=== PATIENT | male | born 1965 | race Hispanic/Latino ===

== ENCOUNTER 2017-09-12 17:51 | Inpatient (IN) | payer BC ==
[~2017-09-12] VITALS: Ht 172.7 cm; Wt 82.6 kg
[2017-09-12] MEDS ORDERED: ASPIRIN 325 MG TABLET ONE (18:18)
[2017-09-12 18:22] LABS: BASOPHILS % (AUTO) 0.5 % (0.0-5.0); EOSINOPHILS % (AUTO) 0.4 % (0.0-8.0); HEMATOCRIT 49.3 % (42-54); LYMPHOCYTES % (AUTO) 17.2 % (21.0-51.0); MEAN CORPUSCULAR HEMOGLOBIN 32.9 pg (27.0-33.0); MEAN CORPUSCULAR HGB CONC 34.9 g/dL (32.0-36.0); MEAN CORPUSCULAR VOLUME 94.3 fL (79-99); MONOCYTES % (AUTO) 3.9 % (3.0-13.0); NUCLEATED RED BLOOD CELLS 0.1 % (0.0-0.19); PLATELET COUNT (AUTO) 117 K/uL (130-400); RED BLOOD CELL COUNT(AUTO) 5.23 MIL/uL (4.50-6.20); RED CELL DISTRIBUTION WIDTH 13.6 % (11.0-15.5); WHITE BLOOD COUNT (AUTO) 8.2 K/uL (4.8-10.8)
[2017-09-12 18:34] LABS: INR 0.96 (0.85-1.15); PARTIAL THROMBOPLASTIN TIME 26.5 SEC (26.3-35.5); PROTHROMBIN TIME 10.1 SEC (9.6-11.6)
[2017-09-12 18:35] LABS: CREATININE 1.3 mg/dL (0.5-1.5); POTASSIUM 4.1 mmol/L (3.5-5.1)
[2017-09-12 18:49] LABS: ALBUMIN 4.2 g/dL (3.5-5.0); BILIRUBIN,TOTAL 0.5 mg/dL (0.2-1.0); TOTAL PROTEIN, SERUM 7.2 g/dL (6.0-8.3)
[2017-09-12] MEDS ORDERED: ONDANSETRON HCL 4 MG/2 ML VIAL ONE (19:31)
[2017-09-12] MEDS ORDERED: NITROGLYCERIN 1GM/1 INCH PACKET TD ONE (19:31)
[2017-09-12] MEDS ORDERED: MORPHINE SULFATE 2 MG/ML 1ML SYG ONE (19:32)
[2017-09-12] MEDS ORDERED: SODIUM CHLORIDE 0.9% 500ML 500 ML IV SCH (20:13)
[2017-09-12] MEDS ORDERED: ENOXAPARIN SODIUM 40 MG/0.4 ML SYRINGE SQ ONE (20:15)
[2017-09-12] MEDS: ENOXAPARIN SODIUM 40 MG/0.4 ML SYRINGE SQ SCH (20:19)
[2017-09-12] MEDS ORDERED: LIDOCAINE HCL-MPF 2% 5ML VIAL ONE (20:40)
[2017-09-12] MEDS ORDERED: HEPARIN SODIUM 1000UNIT/ML 10ML VIAL ONE (20:40)
[2017-09-12] MEDS ORDERED: NITROGLYCERIN 5 MG/ML 10 ML VIAL IV ONE (20:41)
[2017-09-12] MEDS ORDERED: IOHEXOL 350 MG/ML 100ML INFUS..BTL IV ONE (20:41)
[2017-09-12] MEDS ORDERED: IOHEXOL-350 50ML VIAL IV ONE (20:41)
[2017-09-12] MEDS ORDERED: MIDAZOLAM HCL 1 MG/ML 2ML VIAL ONE ×2 (20:41→21:05)
[2017-09-12] MEDS ORDERED: ATROPINE SULFATE 0.1 MG/ML 10 ML SYG IVP ONE (21:31)
[2017-09-12] MEDS ORDERED: CLOPIDOGREL BISULFATE 300 MG TAB ONE (21:34)
[2017-09-12] MEDS ORDERED: TEMAZEPAM 30 MG CAP PO PRN (22:00)
[2017-09-12] MEDS ORDERED: MORPHINE SULFATE 5 MG/ML VIAL IVP SCH (22:00)
[2017-09-12] MEDS ORDERED: ACETAMINOPHEN-CODEINE 300/30MG TAB PO PRN (22:00)
[2017-09-12] MEDS ORDERED: ONDANSETRON HCL MDV 20ML 2 MG/ML VIAL IVP SCH (22:00)
[2017-09-12] MEDS ORDERED: ONDANSETRON HCL MDV 20ML 2 MG/ML VIAL IVP PRN (22:00)
[2017-09-12 22:12] VITALS: BP 147/101
[2017-09-12 22:50] VITALS: BP 135/90
[2017-09-12 23:13] VITALS: BP 122/82
[2017-09-12 23:15] VITALS: BP 139/95
[2017-09-12] MEDS ORDERED: ALPR2TAB7 PO (23:31)
[2017-09-12 23:44] VITALS: BP 138/84
[2017-09-13] VITALS (8 sets, daily range): BP systolic 94–120; BP diastolic 57–87
[2017-09-13 02:33] LABS: HEMATOCRIT 47.1 % (42-54); MEAN CORPUSCULAR HEMOGLOBIN 32.5 pg (27.0-33.0); MEAN CORPUSCULAR HGB CONC 34.4 g/dL (32.0-36.0); MEAN CORPUSCULAR VOLUME 94.6 fL (79-99); PLATELET COUNT (AUTO) 103 K/uL (130-400); RED BLOOD CELL COUNT(AUTO) 4.98 MIL/uL (4.50-6.20); RED CELL DISTRIBUTION WIDTH 13.1 % (11.0-15.5); WHITE BLOOD COUNT (AUTO) 6.7 K/uL (4.8-10.8)
[2017-09-13] MEDS: ACETAMINOPHEN-CODEINE 300/30MG TAB PO PRN ×2 (02:54→08:48)
[2017-09-13 03:29] LABS: POTASSIUM 3.6 mmol/L (3.5-5.1)
[2017-09-13 04:24] LABS: TROPONIN I 191.26 ng/mL (0.00-0.06)
[2017-09-13] MEDS: NICOTINE 21 MG/ 24 HR PATCH TD SCH (08:47)
[2017-09-13] MEDS: ATORVASTATIN CALCIUM 40 MG TABLET PO SCH (08:47)
[2017-09-13] MEDS: CLOPIDOGREL BISULFATE 75 MG TAB PO SCH (08:47)
[2017-09-13] MEDS: PANTOPRAZOLE SODIUM 40 MG TABLET.DR PO SCH (08:47)
[2017-09-13] MEDS: ASPIRIN 81MG TAB.CHEW PO SCH (08:47)
[2017-09-13] MEDS: ENOXAPARIN SODIUM 40 MG/0.4 ML SYRINGE SQ SCH (08:53)
[2017-09-13] MEDS ORDERED: ALPRAZOLAM 1 MG TAB PO SCH (09:00)
[2017-09-13] MEDS ORDERED: METOPROLOL TARTRATE 25 MG TAB PO SCH (09:00)
[2017-09-13] MEDS ORDERED: FUROSEMIDE 10 MG/ML 4ML VIAL IVP SCH (09:00)
[2017-09-13] MEDS ORDERED: ASPIRIN 325 MG TABLET PO SCH (09:00)
[2017-09-13] MEDS: LISINOPRIL 2.5 MG TABLET PO SCH (10:56)
[2017-09-13] MEDS: ACETAMINOPHEN 325 MG TAB PO PRN (17:21)
[2017-09-13] MEDS: ALPRAZOLAM 1 MG TAB PO PRN (19:51)
[2017-09-13] MEDS: CARVEDILOL 6.25 MG TABLET PO SCH (20:53)
[2017-09-14] VITALS (7 sets, daily range): BP systolic 85–124; BP diastolic 55–73
[2017-09-14 04:17] LABS: POTASSIUM 3.4 mmol/L (3.5-5.1)
[2017-09-14] MEDS: ENOXAPARIN SODIUM 40 MG/0.4 ML SYRINGE SQ SCH (07:51)
[2017-09-14] MEDS: CARVEDILOL 6.25 MG TABLET PO SCH ×2 (07:52→21:01)
[2017-09-14] MEDS: LISINOPRIL 2.5 MG TABLET PO SCH (07:52)
[2017-09-14] MEDS: ALPRAZOLAM 1 MG TAB PO PRN ×2 (07:52→17:23)
[2017-09-14] MEDS: CLOPIDOGREL BISULFATE 75 MG TAB PO SCH (07:52)
[2017-09-14] MEDS: ATORVASTATIN CALCIUM 40 MG TABLET PO SCH (07:52)
[2017-09-14] MEDS: ASPIRIN 81MG TAB.CHEW PO SCH (07:53)
[2017-09-14] MEDS: PANTOPRAZOLE SODIUM 40 MG TABLET.DR PO SCH (08:01)
[2017-09-14] MEDS: NICOTINE 21 MG/ 24 HR PATCH TD SCH (08:43)
[2017-09-14] MEDS ORDERED: FUROSEMIDE 20 MG TABLET PO SCH (09:00)
[2017-09-14] MEDS ORDERED: SPIR25TA PO (12:39)
[2017-09-14] MEDS ORDERED: ASPI-1005 PO (12:39)
[2017-09-14] MEDS ORDERED: METO-408 PO (12:39)
[2017-09-14] MEDS ORDERED: LISI2.5T2 PO (12:39)
[2017-09-14] MEDS ORDERED: ATOR40TA69 PO (12:39)
[2017-09-14] MEDS ORDERED: NICO-705 TD (12:39)
[2017-09-14] MEDS ORDERED: CLOP75TA14 PO (12:39)
[2017-09-14] MEDS ORDERED: POTASSIUM CHLORIDE 10% ELIXIR 20 MEQ/15 ML UDCUP PO PRN (12:45)
[2017-09-14] MEDS ORDERED: LIDOCAINE HCL-MPF 1% 2ML VIAL IVP PRN (12:45)
[2017-09-14] MEDS ORDERED: POTASSIUM CHLORIDE 20MEQ/100ML 100 ML IV PRN (12:45)
[2017-09-14] MEDS: POTASSIUM CHLORIDE 20 MEQ ERTAB PO PRN ×2 (15:39→17:21)
[2017-09-14] MEDS: ACETAMINOPHEN 325 MG TAB PO PRN (17:20)
[2017-09-15] VITALS: BP 84/51
[2017-09-15 03:27] VITALS: BP 105/74
[2017-09-15 07:47] VITALS: BP 137/88
[2017-09-15] MEDS ORDERED: SPIRONOLACTONE 25 MG TAB PO SCH (09:00)
[2017-09-15] MEDS: PANTOPRAZOLE SODIUM 40 MG TABLET.DR PO SCH (09:25)
[2017-09-15] MEDS: NICOTINE 21 MG/ 24 HR PATCH TD SCH (09:25)
[2017-09-15] MEDS: CLOPIDOGREL BISULFATE 75 MG TAB PO SCH (09:25)
[2017-09-15] MEDS: ATORVASTATIN CALCIUM 40 MG TABLET PO SCH (09:25)
[2017-09-15] MEDS: ASPIRIN 81MG TAB.CHEW PO SCH (09:25)
[2017-09-15] MEDS: LISINOPRIL 2.5 MG TABLET PO SCH (09:25)
[2017-09-15] MEDS: CARVEDILOL 6.25 MG TABLET PO SCH (09:27)
[2017-09-15] MEDS: ALPRAZOLAM 1 MG TAB PO PRN (09:56)
[2017-09-15 11:26] VITALS: BP 121/70
[2017-09-15] MEDS ORDERED: CLOP75TA14 PO (13:56)
== END 2017-09-15 14:31 | disposition home or self-care (01) | DRG 248 ==
LOC: EDH 17:51 → EDHIP 20:00 → 2DH 21:42
PROVIDERS: ADMIT Family Medicine; ATTEND Family Medicine
PROC: 4A023N7 Measurement of Cardiac Sampling and Pressure, Left Heart, Percutaneous Approach (ICD-10-PCS; principal; 2017-09-12)
PROC: 02703DZ Dilation of Coronary Artery, One Artery with Intraluminal Device, Percutaneous Approach (ICD-10-PCS; 2017-09-12)
PROC: B2111ZZ Fluoroscopy of Multiple Coronary Arteries using Low Osmolar Contrast (ICD-10-PCS; 2017-09-12)
DX: I21.4 Non-ST elevation (NSTEMI) myocardial infarction (principal); I50.23 Acute on chronic systolic (congestive) heart failure; F13.20 Sedative, hypnotic or anxiolytic dependence, uncomplicated; F17.210 Nicotine dependence, cigarettes, uncomplicated; E78.2 Mixed hyperlipidemia; F41.9 Anxiety disorder, unspecified; I25.10 Atherosclerotic heart disease of native coronary artery without angina pectoris; I25.5 Ischemic cardiomyopathy; I25.2 Old myocardial infarction; Z79.82 Long term (current) use of aspirin; Z79.899 Other long term (current) drug therapy; Z95.5 Presence of coronary angioplasty implant and graft; Z83.3 Family history of diabetes mellitus; Z82.49 Family history of ischemic heart disease and other diseases of the circulatory system
CPT/HCPCS: 36415; 71045; 80048; 80053; 80061; 82550; 82553; 82948; 83874; 83880; 84484; 85025; 85027; 85610; 85730; 92941; 92943; 93005; 93306; 93458; 99156; 99157; C1769; C1887; C1894; J0461; J1644; J1650; J1940; J2250; J2270; J2405; J3490; Q9967

== ENCOUNTER 2017-12-15 10:32 | Emergency (ER) | payer BC ==
[~2017-12-15 10:32] MED LIST: ALPR2TAB7 PO; ASPI-1005 PO; ATOR40TA69 PO; CLOP75TA14 PO; LISI2.5T2 PO; METO-408 PO; NICO-705 TD; SPIR25TA PO
== END 2017-12-15 11:24 | disposition home or self-care (01) ==
LOC: EDH 10:32
DX: K64.9 Unspecified hemorrhoids (principal); Z72.0 Tobacco use
CPT/HCPCS: 99281

== ENCOUNTER 2017-12-19 09:16 | Emergency (ER) | payer BC ==
[2017-12-19] MEDS ORDERED: KETOROLAC TROMETHAMINE 60 MG/2 ML VIAL ONE (09:44)
== END 2017-12-19 10:24 | disposition home or self-care (01) ==
LOC: EDH 09:16
DX: S13.8XXA Sprain of joints and ligaments of other parts of neck, initial encounter (principal); F41.9 Anxiety disorder, unspecified; Z86.14 Personal history of Methicillin resistant Staphylococcus aureus infection; Z72.0 Tobacco use; W18.39XA Other fall on same level, initial encounter; Y93.89 Activity, other specified; Y92.89 Other specified places as the place of occurrence of the external cause; Y99.8 Other external cause status
CPT/HCPCS: 72040; 96372; 99284; J1885

== ENCOUNTER 2018-12-24 09:21 | Emergency (ER) | payer BC, OTHER ==
[2018-12-24 10:03] LABS: BASOPHILS % (AUTO) 0.9 % (0.0-5.0); EOSINOPHILS % (AUTO) 0.5 % (0.0-8.0); MEAN CORPUSCULAR HEMOGLOBIN 33.6 pg (27.0-33.0); NEUTROPHILS % (AUTO) 72.6 % (40.0-77.0); NUCLEATED RED BLOOD CELLS 0.1 % (0.0-0.19); PLATELET COUNT (AUTO) 140 K/uL (130-400); RED CELL DISTRIBUTION WIDTH 13.5 % (11.0-15.5); WHITE BLOOD COUNT (AUTO) 6.7 K/uL (4.8-10.8)
[2018-12-24] MEDS ORDERED: ONDANSETRON HCL 4 MG/2 ML VIAL ONE (10:08)
[2018-12-24] MEDS ORDERED: SODIUM CHLORIDE 0.9% 1000ML 1,000 ML IV ONE (10:09)
[2018-12-24 10:15] LABS: APPEARANCE,URINE Clear (CLEAR); BILIRUBIN,URINE Negative (NEGATIVE); COLOR,URINE Yellow (YELLOW); GLUCOSE, URINE (UA) Negative (NEGATIVE); KETONES,URINE Negative (NEGATIVE); LEUKOCYTE ESTERASE ,URINE Negative (NEGATIVE); NITRATE,URINE Negative (NEGATIVE); OCCULT BLOOD,URINE Negative (NEGATIVE); PROTEIN,URINE Negative (NEGATIVE)
[2018-12-24 10:25] LABS: CREATININE 1.1 mg/dL (0.5-1.5); POTASSIUM 3.6 mmol/L (3.5-5.1)
[2018-12-24 10:31] LABS: ALBUMIN 3.9 g/dL (3.5-5.0); BILIRUBIN,TOTAL 1.3 mg/dL (0.2-1.0); TOTAL PROTEIN, SERUM 7.3 g/dL (6.0-8.3)
== END 2018-12-24 15:09 | disposition home or self-care (01) ==
LOC: EDH 09:21
DX: K76.0 Fatty (change of) liver, not elsewhere classified (principal); R11.2 Nausea with vomiting, unspecified; F41.9 Anxiety disorder, unspecified; Z87.891 Personal history of nicotine dependence
CPT/HCPCS: 36415; 71045; 76705; 80053; 81003; 82150; 82550; 83690; 84484; 85025; 93005; 96361; 96374; 99285; G0480; J2405; J7030

== ENCOUNTER 2019-01-15 07:38 | Emergency (ER) | payer SELFPAY ==
[2019-01-15 08:32] LABS: APPEARANCE,URINE Clear (CLEAR); BILIRUBIN,URINE Negative (NEGATIVE); COLOR,URINE Dark Yellow (YELLOW); GLUCOSE, URINE (UA) Negative (NEGATIVE); KETONES,URINE Negative (NEGATIVE); LEUKOCYTE ESTERASE ,URINE Negative (NEGATIVE); NITRATE,URINE Negative (NEGATIVE); OCCULT BLOOD,URINE Negative (NEGATIVE); PROTEIN,URINE Trace mg/dL (NEGATIVE)
[2019-01-15 08:32] LABS: CREATININE 1.3 mg/dL (0.5-1.5); POTASSIUM 3.1 mmol/L (3.5-5.1)
[2019-01-15 08:34] LABS: INR 1.01 (0.85-1.15); PARTIAL THROMBOPLASTIN TIME 28.1 SEC (26.3-35.5); PROTHROMBIN TIME 10.6 SEC (9.6-11.6)
[2019-01-15 08:43] LABS: BASOPHILS % (AUTO) 0.6 % (0.0-5.0); HEMATOCRIT 43.4 % (42-54); MEAN CORPUSCULAR HEMOGLOBIN 33.6 pg (27.0-33.0); MEAN CORPUSCULAR HGB CONC 34.9 g/dL (32.0-36.0); MEAN CORPUSCULAR VOLUME 96.2 fL (79-99); MONOCYTES % (AUTO) 9.7 % (3.0-13.0); NEUTROPHILS % (AUTO) 73.7 % (40.0-77.0); NUCLEATED RED BLOOD CELLS 0.1 % (0.0-0.19); PLATELET COUNT (AUTO) 113 K/uL (130-400); RED BLOOD CELL COUNT(AUTO) 4.51 MIL/uL (4.50-6.20); RED CELL DISTRIBUTION WIDTH 13.3 % (11.0-15.5); WHITE BLOOD COUNT (AUTO) 6.3 K/uL (4.8-10.8)
[2019-01-15] MEDS ORDERED: SODIUM CHLORIDE 0.9% 1000ML 1,000 ML IV ONE (08:51)
[2019-01-15] MEDS ORDERED: LOPERAMIDE HCL 2 MG CAP PO ONE ×2 (08:52→11:57)
[2019-01-15 09:02] LABS: BACTERIA,URINE Few /HPF (None Seen); RBC,URINE None Seen /HPF (0-1); SQUAMOUS EPITHELIAL CELL,UR Few /HPF (0-2); WBC,URINE None Seen /HPF (0-1)
[2019-01-15] MEDS ORDERED: ONDANSETRON HCL 4 MG/2 ML VIAL ONE (09:53)
[2019-01-15] MEDS ORDERED: POTASSIUM CHLORIDE 10% ELIXIR 20 MEQ/15 ML UDCUP ONE (11:27)
[2019-01-15] MEDS ORDERED: SODIUM CHLORIDE 0.9% 500ML 500 ML IV ONE (11:28)
== END 2019-01-15 12:22 | disposition home or self-care (01) ==
LOC: EDH 07:38
DX: A09 Infectious gastroenteritis and colitis, unspecified (principal); E86.0 Dehydration; E87.6 Hypokalemia; K62.5 Hemorrhage of anus and rectum; F41.9 Anxiety disorder, unspecified; Z72.0 Tobacco use
CPT/HCPCS: 36415; 80048; 81001; 82270; 83605; 83690; 83880; 85025; 85610; 85730; 86850; 86900; 86901; 87040 ×2; 87046; 87804 ×2; 93005; 99285; J2405; J7030; J7040

== ENCOUNTER 2019-06-02 09:57 | Emergency (ER) | payer SELFPAY | END 2019-06-02 10:25 | disposition home or self-care (01) | LOC: EDH 09:57 | DX: S40.021A Contusion of right upper arm, initial encounter (principal); Z72.0 Tobacco use; F41.9 Anxiety disorder, unspecified; X58.XXXA Exposure to other specified factors, initial encounter; Y93.89 Activity, other specified; Y92.89 Other specified places as the place of occurrence of the external cause; Y99.8 Other external cause status | CPT/HCPCS: 99281 ==

== ENCOUNTER 2019-06-19 11:54 | Emergency (ER) | payer SELFPAY | END 2019-06-19 12:28 | disposition home or self-care (01) | LOC: EDH 11:54 | DX: B35.4 Tinea corporis (principal); F41.9 Anxiety disorder, unspecified; Z72.0 Tobacco use; Z95.1 Presence of aortocoronary bypass graft; Z98.890 Other specified postprocedural states | CPT/HCPCS: 99281 ==

== ENCOUNTER 2019-07-26 08:45 | Emergency (ER) | payer SELFPAY ==
[2019-07-26 09:42] LABS: BASOPHILS % (AUTO) 0.6 % (0.0-5.0); EOSINOPHILS % (AUTO) 0.9 % (0.0-8.0); HEMATOCRIT 45.4 % (42-54); LYMPHOCYTES % (AUTO) 19.1 % (21.0-51.0); MEAN CORPUSCULAR HEMOGLOBIN 32.8 pg (27.0-33.0); MEAN CORPUSCULAR HGB CONC 34.6 g/dL (32.0-36.0); MEAN CORPUSCULAR VOLUME 94.8 fL (79-99); MONOCYTES % (AUTO) 6.4 % (3.0-13.0); NEUTROPHILS % (AUTO) 72.8 % (40.0-77.0); PLATELET COUNT (AUTO) 113 K/uL (130-400); RED BLOOD CELL COUNT(AUTO) 4.79 MIL/uL (4.50-6.20); RED CELL DISTRIBUTION WIDTH 11.9 % (11.0-15.5); WHITE BLOOD COUNT (AUTO) 5.3 K/uL (4.8-10.8)
[2019-07-26] MEDS ORDERED: KETOROLAC TROMETHAMINE 30MG/ML ONE (09:49)
[2019-07-26 09:52] LABS: CREATININE 1.2 mg/dL (0.5-1.5); POTASSIUM 3.7 mmol/L (3.5-5.1)
[2019-07-26 09:58] LABS: ALBUMIN 3.6 g/dL (3.5-5.0); BILIRUBIN,DIRECT 0.4 mg/dL (0.0-0.3); BILIRUBIN,TOTAL 1.7 mg/dL (0.2-1.0); TOTAL PROTEIN, SERUM 6.7 g/dL (6.0-8.3)
[2019-07-26] MEDS ORDERED: ONDANSETRON HCL 4 MG/2 ML VIAL ONE (10:53)
== END 2019-07-26 11:38 | disposition home or self-care (01) ==
LOC: EDH 08:45
DX: S29.011A Strain of muscle and tendon of front wall of thorax, initial encounter (principal); R07.89 Other chest pain; F41.9 Anxiety disorder, unspecified; Z72.0 Tobacco use; X58.XXXA Exposure to other specified factors, initial encounter; Y93.89 Activity, other specified; Y92.89 Other specified places as the place of occurrence of the external cause; Y99.8 Other external cause status
CPT/HCPCS: 36415; 71045; 80048; 80076; 82550; 83690; 84484; 85025; 93005; 96374; 96375; 99285; J1885; J2405

== ENCOUNTER 2022-12-14 07:33 | Emergency (ER) | payer BC, MEDICARE ==
[~2022-12-14] VITALS: Ht 172.7 cm; Wt 63.5 kg
[~2022-12-14 07:33] MED LIST changes: -ASPI-1005 PO; +ASPI-1443 PO; -ATOR40TA69 PO; +ATOR40TA71 PO; +BUSP15TA3 PO; -CLOP75TA14 PO; -LISI2.5T2 PO; +LISI20TA24 PO; -METO-408 PO; -NICO-705 TD; +ONDA8TAB12 PO; +PANT20TA18 PO; -SPIR25TA PO
[2022-12-14 07:43] VITALS: BP 174/113; PULSE 120; RESP 18; O2SAT 99
[2022-12-14 08:17] LABS: BASOPHILS # (AUTO) 0.03 K/uL (0.00-0.20); BASOPHILS % (AUTO) 0.6 % (0.0-5.0); EOSINOPHILS # (AUTO) 0.02 K/uL (0.00-0.70); EOSINOPHILS % (AUTO) 0.4 % (0.0-8.0); HEMATOCRIT 49.5 % (42-54); IMMATURE GRANULOCYTE ABSOLUTE 0.01 K/uL (0-1); LYMPHOCYTES # (AUTO) 0.9 K/uL (1.0-4.8); MEAN CORPUSCULAR HEMOGLOBIN 33.6 pg (27.0-33.0); MEAN CORPUSCULAR HGB CONC 34.5 g/dL (32.0-36.0); MEAN CORPUSCULAR VOLUME 97.2 fL (79-99); MONOCYTES # (AUTO) 0.5 K/uL (0.1-1.0); MONOCYTES % (AUTO) 10.2 % (3.0-13.0); NEUTROPHILS # (AUTO) 3.5 K/uL (1.8-7.7); NEUTROPHILS % (AUTO) 70.6 % (40.0-77.0); PLATELET COUNT (AUTO) 88 K/uL (130-400); RED BLOOD CELL COUNT(AUTO) 5.09 MIL/uL (4.50-6.20); RED CELL DISTRIBUTION WIDTH 12.1 % (11.0-15.5)
[2022-12-14 08:33] LABS: CARBON DIOXIDE 31 mmol/L (21-32); CHLORIDE 96 mmol/L (101-111); CREATININE 0.9 mg/dL (0.5-1.5); GLOMERULAR FILTR. RATE CALC 100 mL/min (>90); GLUCOSE,RANDOM 168 mg/dL (70-105); POTASSIUM 3.5 mmol/L (3.5-5.1); SODIUM SERUM 135 mmol/L (136-145); UREA NITROGEN, BLOOD 4 mg/dL (7-18)
[2022-12-14 08:38] LABS: ALANINE AMINOTRANSFERASE 38 U/L (12-78); ALBUMIN 3.7 g/dL (3.5-5.0); ALCOHOL, BLOOD < 3 mg/dL (0-10); ASPARTATE AMINOTRANSFERASE 25 U/L (10-37); BILIRUBIN,TOTAL 2.7 mg/dL (0.2-1.0); TOTAL PROTEIN, SERUM 7.5 g/dL (6.0-8.3)
[2022-12-14 08:45] LABS: APPEARANCE,URINE CLEAR (CLEAR); BILIRUBIN,URINE NEGATIVE (NEGATIVE); COLOR,URINE YELLOW (YELLOW); GLUCOSE, URINE (UA) NEGATIVE (NEGATIVE); KETONES,URINE NEGATIVE (NEGATIVE); LEUKOCYTE ESTERASE ,URINE NEGATIVE Leu/uL (NEGATIVE); NITRATE,URINE NEGATIVE (NEGATIVE); OCCULT BLOOD,URINE NEGATIVE (NEGATIVE); PH,URINE 6.5 (5.0-8.0); PROTEIN,URINE 10 mg/dL (NEGATIVE); UROBILINOGEN,URINE 12 mg/dL (0.2-1.0)
[2022-12-14 08:47] LABS: ADD UA MICROSCOPIC YES
[2022-12-14 08:48] LABS: BACTERIA,URINE RARE /HPF (None Seen); MUCUS,URINE RARE LPF (None Seen); OTHER CASTS, URINE 1 /LPF (None Seen)
[2022-12-14 08:59] LABS: AMPHET/METH SCREEN,URINE NEGATIVE (NEGATIVE); BARBITURATE SCREEN, URINE NEGATIVE (NEGATIVE); BENZODIAZEPINES SCREEN,URINE POSITIVE (NEGATIVE); CANNABINOID SCREEN,URINE NEGATIVE (NEGATIVE); COCAINE SCREEN,URINE NEGATIVE (NEGATIVE); OPIATE SCREEN,URINE NEGATIVE (NEGATIVE); PHENCYCLIDINE SCREEN,URINE NEGATIVE (NEGATIVE)
[2022-12-14] MEDS ORDERED: NITROGLYCERIN 1GM OINT 1 INCH/1GM TD ONE (09:30)
== END 2022-12-14 10:20 | disposition left against medical advice (07) ==
LOC: EDH 07:33
DX: R07.89 Other chest pain (principal); F41.9 Anxiety disorder, unspecified; F10.20 Alcohol dependence, uncomplicated; F17.200 Nicotine dependence, unspecified, uncomplicated; Z79.82 Long term (current) use of aspirin; Z79.899 Other long term (current) drug therapy; Z98.890 Other specified postprocedural states
CPT/HCPCS: 36415; 71045; 80053; 80305; 81001; 84484; 85025; 93005

== ENCOUNTER 2022-12-14 12:49 | Inpatient (IN) | payer BC, MEDICARE ==
[~2022-12-14] VITALS: Ht 175.3 cm; Wt 65.6 kg
[2022-12-14] MEDS ORDERED: MORPHINE 2 MG SYG IV PRN (18:30)
[2022-12-14] MEDS ORDERED: ONDANSETRON 4MG INJ IV PRN (18:30)
[2022-12-14] MEDS ORDERED: MORPHINE 4 MG SYG IV PRN (18:30)
[2022-12-14] MEDS ORDERED: ACETAMINOPHEN 325 MG TAB PO PRN ×2 (18:30)
[2022-12-14] MEDS: NITROGLYCERIN 1GM OINT 1 INCH/1GM TD SCH (19:04)
[2022-12-14] MEDS ORDERED: LACTATED RINGERS 1000ML 2,052 ML IV ONE (19:30)
[2022-12-14] MEDS ORDERED: ASPIRIN 81MG CHEW TAB PO ONE (19:30)
[2022-12-14] MEDS ORDERED: POTASSIUM CHLORIDE 10% ELIXIR 20 MEQ/15 ML UDCUP PO PRN (19:30)
[2022-12-14] MEDS ORDERED: POTASSIUM CHLORIDE 20MEQ/100ML 100 ML IV PRN (19:30)
[2022-12-14] MEDS ORDERED: MAGNESIUM 2GM PREMIX 50ML 50 ML IV PRN (19:30)
[2022-12-14] MEDS: INSULIN HUMULIN R 100 UNIT/ML 3ML SQ SCH (21:00)
[2022-12-14] MEDS ORDERED: ALPRAZOLAM 0.5 MG TABLET PO ONE (22:30)
[2022-12-14] MEDS: FAMOTIDINE 20MG TAB PO SCH (23:00)
[2022-12-15] MEDS ORDERED: ALPRAZOLAM 1 MG TAB PO PRN (01:30)
[2022-12-15 01:42] LABS: HEMOGLOBIN A1C 4.8 % (4.0-6.0)
[2022-12-15] MEDS: NITROGLYCERIN 1GM OINT 1 INCH/1GM TD SCH ×2 (02:30→11:15)
[2022-12-15 04:40] VITALS: BP 125/91; PULSE 75; RESP 20
[2022-12-15 04:59] LABS: BASOPHILS # (AUTO) 0.03 K/uL (0.00-0.20); BASOPHILS % (AUTO) 0.5 % (0.0-5.0); EOSINOPHILS # (AUTO) 0.11 K/uL (0.00-0.70); EOSINOPHILS % (AUTO) 1.8 % (0.0-8.0); HEMATOCRIT 44.9 % (42-54); IMMATURE GRANULOCYTE ABSOLUTE 0.03 K/uL (0-1); LYMPHOCYTES # (AUTO) 2.3 K/uL (1.0-4.8); LYMPHOCYTES % (AUTO) 38.8 % (21.0-51.0); MEAN CORPUSCULAR HEMOGLOBIN 33.8 pg (27.0-33.0); MEAN CORPUSCULAR HGB CONC 34.3 g/dL (32.0-36.0); MEAN CORPUSCULAR VOLUME 98.5 fL (79-99); MONOCYTES # (AUTO) 0.7 K/uL (0.1-1.0); MONOCYTES % (AUTO) 11.7 % (3.0-13.0); NEUTROPHILS # (AUTO) 2.8 K/uL (1.8-7.7); NEUTROPHILS % (AUTO) 46.7 % (40.0-77.0); PLATELET COUNT (AUTO) 94 K/uL (130-400); RED BLOOD CELL COUNT(AUTO) 4.56 MIL/uL (4.50-6.20); RED CELL DISTRIBUTION WIDTH 12.1 % (11.0-15.5)
[2022-12-15 05:05] LABS: CREATININE 0.8 mg/dL (0.5-1.5); MAGNESIUM 1.9 mg/dL (1.80-2.40); PHOSPHORUS 4.2 mg/dL (2.5-4.9); POTASSIUM 3.8 mmol/L (3.5-5.1)
[2022-12-15] MEDS: INSULIN HUMULIN R 100 UNIT/ML 3ML SQ SCH ×2 (06:43→11:30)
[2022-12-15 07:39] VITALS: BP 122/73; PULSE 69; RESP 18
[2022-12-15 08:00] VITALS: O2SAT 98
[2022-12-15] MEDS: KCL 20 MEQ ERTAB PO PRN ×2 (08:29→15:26)
[2022-12-15] MEDS: FAMOTIDINE 20MG TAB PO SCH (08:29)
[2022-12-15] MEDS ORDERED: ASPIRIN 81MG CHEW TAB PO SCH (09:00)
[2022-12-15] MEDS ORDERED: ENOXAPARIN SODIUM 40 MG/0.4 ML SYRINGE SQ SCH (09:00)
[2022-12-15] MEDS ORDERED: CHLORDIAZEPOXIDE HCL 25 MG CAP PO PRN (11:00)
[2022-12-15] MEDS ORDERED: PHARMACY COMMUNICATION MISC PRN (11:00)
[2022-12-15] MEDS ORDERED: THIAMINE HCL 100 MG, FOLIC ACID 1 MG, M.V.I. IV [ADULT] 10 ML in 0.9%NACL 1000ML 1,000 ML IV SCH (11:00)
[2022-12-15] MEDS ORDERED: LORAZEPAM 2 MG/ML 1 ML VIAL IVP PRN (11:00)
[2022-12-15 11:16] VITALS: BP 119/88; PULSE 78; RESP 17
[2022-12-15 12:50] VITALS: BP 140/48; PULSE 65; RESP 17
[2022-12-15] MEDS ORDERED: COMPOUND IV REFRIGERATED 1 EACH IVSOLN MISC PRN (13:00)
== END 2022-12-15 15:50 | disposition home or self-care (01) | DRG 392 ==
LOC: EDH 12:49 → EDHIP 18:19 → 4BH 12-15 04:50
PROVIDERS: ADMIT Internal Medicine; ATTEND Internal Medicine
DX: K29.60 Other gastritis without bleeding (principal); F10.239 Alcohol dependence with withdrawal, unspecified; D69.6 Thrombocytopenia, unspecified; E78.5 Hyperlipidemia, unspecified; F17.200 Nicotine dependence, unspecified, uncomplicated; I10 Essential (primary) hypertension; K76.0 Fatty (change of) liver, not elsewhere classified; I25.10 Atherosclerotic heart disease of native coronary artery without angina pectoris; F32.A Depression, unspecified; F41.9 Anxiety disorder, unspecified; R73.9 Hyperglycemia, unspecified; I25.2 Old myocardial infarction; Z79.82 Long term (current) use of aspirin; Z91.148 Patient's other noncompliance with medication regimen for other reason; Z95.5 Presence of coronary angioplasty implant and graft
CPT/HCPCS: 36415; 71045; 76700; 80048; 80053; 80305; 81001; 82948; 83036; 83605; 83735; 84100; 84484; 85025; 87040; 93005; 96360; G0378; J2270; J3411; J3475; J3490; J7030; J7120